=== PATIENT | female | born 1985 | race Caucasian/White ===

== ENCOUNTER 2016-09-03 10:59 | Inpatient (IN) | payer MEDICAID ==
[~2016-09-03] VITALS: Ht 167.6 cm; Wt 80.9 kg
[~2016-09-03 10:59] MED LIST: CALC-649 PO; FOLI0.4T2 PO; PREN1TAB49 PO
[2016-09-03 11:09] VITALS: BP 131/70; PULSE 91; RESP 16; Ht 167.6 cm; Wt 80.9 kg
[2016-09-03] MEDS ORDERED: NITR-58 PO (11:17)
[2016-09-03] MEDS ORDERED: LACTATED RINGER'S 1,000 ML IV SCH (11:29)
[2016-09-03] MEDS ORDERED: OXYTOCIN 30 UNITS/LR 500 ML IV PRN ×2 (11:30→16:00)
[2016-09-03] MEDS ORDERED: BUTORPHANOL 2 MG INJ IV PRN (11:30)
[2016-09-03] MEDS ORDERED: CARBOPROST 250 MCG INJ IM PRN ×2 (11:30→16:00)
[2016-09-03] MEDS ORDERED: MISOPROSTOL 200 MCG TAB PR PRN ×2 (11:30→16:00)
[2016-09-03] MEDS ORDERED: AMPICILLIN 2 GM/NS (PMX) 100 ML IV ONE (11:30)
[2016-09-03] MEDS ORDERED: LIDOCAINE 1% (MPF) 30 ML INJ INJ PRN (11:30)
[2016-09-03] MEDS ORDERED: ACETAMINOPHEN/CODEINE #3 TAB PO PRN ×3 (11:30→17:00)
[2016-09-03] MEDS ORDERED: METHYLERGONOVINE 0.2 MG INJ IM PRN ×2 (11:30→16:00)
[2016-09-03] MEDS ORDERED: IBUPROFEN 600 MG TAB PO PRN (11:30)
[2016-09-03] MEDS ORDERED: OXYTOCIN 30 UNITS/LR 500 ML IV SCH ×2 (11:30)
--- NOTE | 2016-09-03 11:46 | TRIAGE ---
OB Triage Datetime Report Generated by CPN: 09/03/2016 11:46 Datetime: 09/03/2016 11:40 Labor Evaluation Frequency: 2-8 Monitor Mode: External Duration (sec)2399: 60-120 Quality: Mild Pattern: Normal: <= 5 Contractions in 10 Minutes Resting Tone [place]: Relaxed Heart Rate FHR Baseline Rate: 135 Monitor Mode: External US Variability: Moderate 6-25 bpm Accelerations: 15X15 Decelerations: Variable Category: Category II Datetime: 09/03/2016 11:19 Vaginal Exam Dilatation (cms): 3.0 Effacement (%): 80 Station: -2 Exam By: wliu Datetime: 09/03/2016 11:17 Assessment Type: Triage Maternal Assessment Level of Consciousness: Fully Conscious DTR's/Clonus: DTRs 2+ Headache: Denies Blurred Vision: No Respiratory Effort: Unlabored; Regular Rhythm; Equal Expansion Breath Sounds, Left: Clear and Equal Breath Sounds, Right: Clear and Equal Nausea/Vomiting: Denies RUQ Epigastric Pain: Denies Lower Extremities Edema: None Degree: None Upper Extremities Edema: None Degree: None Facial Edema: None Fall Risk Assessment History of Falling: (0) No Secondary Diagnosis: (0) No Ambulatory Aid: (0) Bedrest/Nurse Assist IV Therapy: (0) No Gait: (0) Normal/Bedrest/Immobile Mental Status: (0) Oriented to Own Ability Fall Score: 0 Fall Risk Score Definition: No Risk: No action required Datetime: 09/03/2016 11:08 Time of Arrival: 09/03/2016 11:30 EGA: 38.4 Arrived By: Ambulatory Arrived From: Home Datetime: 09/03/2016 11:07 EGA: 38.5 Datetime: 09/03/2016 11:06 Time of Arrival: 09/03/2016 11:01 Arrived By: Ambulatory Arrived From: Home Chief Complaint: pt. came to hospital c/o uc since last night, deny srom, deny vag. bleeding Movement: Present Contractions: Irregular Rupture of Membranes: Denies Vaginal Bleeding: None Vaginal Discharge: Denies Recent Sexual Intercouse: Denies Abdominal Trauma: Not Applicable Patient Complaints: Contractions Time Provider Notified: 08/28/2016 11:22 Provider Notified: dr. zhao Initial Plan: r/o labor
[2016-09-03 12:23] LABS: ADD SCAN DIFF NO
[2016-09-03 12:27] LABS: BASOPHILS % 0.3 % (0.0-2.0); EOSINOPHILS % 0.4 % (0.0-7.0); HEMATOCRIT 36.5 % (37.0-47.0); HEMOGLOBIN 11.9 g/dl (12.0-16.0); MEAN CORPUSCULAR HEMOGLOBIN 28.9 pg (29.0-33.0); MEAN CORPUSCULAR HGB CONC 32.6 g/dl (32.0-37.0); MEAN CORPUSCULAR VOLUME 88.6 fl (82.0-101.0); MEAN PLATELET VOLUME 10.3 fl (7.4-10.4); MONOCYTE # 0.6 10^3/ul (0.3-0.9); MONOCYTES % 6.3 % (0.0-11.0); NEUTROPHIL # 7.2 10^3/ul (1.6-7.5); NEUTROPHILS % 72.5 % (39.0-77.0); PLATELET COUNT 196 10^3/UL (140-415); RED BLOOD COUNT 4.12 10^6/ul (4.20-5.40); WHITE BLOOD COUNT 9.9 10^3/ul (4.8-10.8)
[2016-09-03 13:33] LABS: INR 1.04; PROTIME 13.6 Sec (12.2-14.2); PT RATIO 1.1
[2016-09-03 14:22] LABS: PARTIAL THROMBOPLASTIN TIME 38.6 Sec (25.0-35.0)
[2016-09-03] MEDS ORDERED: LACTATED RINGER'S 1,000 ML IV PRN (15:00)
[2016-09-03] MEDS ORDERED: FENTAnyl 50 MCG/ML VIAL ONE (15:26)
[2016-09-03] MEDS ORDERED: FENTAnyl 50 MCG/ML VIAL IV ONE (15:30)
[2016-09-03] MEDS ORDERED: LACTATED RINGER'S 1,000 ML IV* SCH (15:57)
--- NOTE | 2016-09-03 15:57 | LDN ---
Date/Time of Note Date/Time of Note DATE: 09/03/16 TIME: 15:55 Delivery Summary Pt pushed to of a liveborn male infant with Apgars of 9/9 and weight of 3345g. Compound presentation at delivery. Placenta Delivered: Spontaneously Meconium: none Perineum intact?: No Perineal laceration: 1 Perineal laceration repair: Repaired with 3-0 Chromic in the usual fashion Anesthesia type: Local Estimated blood loss: 250 Sponge & Needle done & correct: Yes All needle counts correct: Yes Any foreign bodies felt in the: No Problems: Delivery Information Sex Infant Sex: male Apgars 1 Minute: 9 5 Minute: 9 Suctioning Nose & mouth suctioned at macario: No Delee suction performed: No Umbilical Cord Umbilical cord with: 3 Vessels Cord presentations: nuchal cord Nuchal cord present X: 1 Cord Blood was obtained: Yes Mother & Baby Disposition Disposition Mom & Baby to Maternity; Good: Yes Baby to NICU: No DESIRAE KATE MD Sep 03, 2016 15:57
[2016-09-03] MEDS ORDERED: SENNA/DOCUSATE NA (8.6MG/50MG) TAB PO PRN (16:00)
[2016-09-03] MEDS ORDERED: DIPHENHYDRAMINE 50 MG INJ IV PRN (16:00)
[2016-09-03] MEDS ORDERED: ONDANSETRON 4 MG INJ IV PRN ×2 (16:00→17:00)
[2016-09-03] MEDS ORDERED: LANOLIN 7 GM TUBE TOP PRN ×2 (16:00→17:00)
[2016-09-03] MEDS ORDERED: DIBUCAINE 1% 30 GM OINT PR PRN ×2 (16:00→17:00)
[2016-09-03] MEDS ORDERED: AMPICILLIN 1 GM/NS (PMX) 50 ML IV SCH (16:00)
[2016-09-03] MEDS ORDERED: ACETAMINOPHEN 325 MG TAB PO PRN ×2 (16:00→17:00)
[2016-09-03] MEDS ORDERED: BENZOCAINE 20% 56 ML SPRAY TOP PRN ×2 (16:00→17:00)
[2016-09-03] MEDS ORDERED: WITCH HAZEL/GLYCERIN PAD PR PRN (17:00)
[2016-09-03] MEDS ORDERED: OXYCODONE/ASPIRIN (4.88/325) TAB PO PRN ×2 (17:00)
[2016-09-03 17:03] VITALS: BP 119/60; PULSE 75; RESP 20
--- NOTE | 2016-09-03 17:21 | HP ---
Date/Time of Note Date/Time of Note DATE: 09/03/16 TIME: 17:15 OB - History Hx of Present Free Text/Dictation 19 years old female 3 para with a EDC of September 13, 2016 admitted to [facility] in active labor contraction every 3-4 minute cervical dilatation 5-6 cm 100% effacement vertex at -1 station with a strong quality of contraction transferred to labor and delivery room. Chief Complaint: Labor pain Estimated Due Date: Sep 13, 2016 : 3 Para: 2 Care: Good Care Ultrasounds: Normal mid trimester US Obstetrical Complications: None Medical Complications: None Past Family/Social History * Past Medical, Surgical, Family and Obstetric Histories reviewed from chart. Rubella: immune RPR/VDRL: Negative GBS Status: Negative HBsAG: Negative OB Admission Exam Vital Signs Vital Signs Vital Signs Date Time Temp Pulse Resp B/P Pulse Ox O2 Delivery O2 Flow Rate FiO2 09/03/16 17:03 99.1 75 20 119/60 Room Air Physical Exam HEENT: WNL Heart: Rhythm Normal Lungs: Clear, Equal Abdomen: WNL Extremities: Normal Reflexes: Normal Cervical Dilatation: 7cm Effacement: 100% Station: Other (Last pelvic examination cervix completely dilated 100% effaced vertex at 0 station) Membranes: Ruptured Amniotic Fluid: Clear Heart Rate: 120's Accelerations: Accelerations Present Decelerations: No Decelerations Varibility: Marked Contractions on Admission: < 5 Minutes Apart Intensity: Firm Last 72 hours Lab Results CBC & BMP 09/03/16 11:40 MICHAEL LAMAR MD Sep 03, 2016 17:20
[2016-09-03] MEDS ORDERED: IBUPROFEN 600 MG TAB PO SCH (18:00)
[2016-09-03] MEDS: OXYTOCIN 30 UNITS/LR 500 ML IV SCH ×2 (18:40→19:44)
[2016-09-03] MEDS: IBUPROFEN 600 MG TAB PO SCH ×2 (18:40→23:45)
[2016-09-03 20:00] VITALS: BP 117/64; PULSE 75; RESP 18
[2016-09-03] MEDS: SENNA/DOCUSATE NA (8.6MG/50MG) TAB PO SCH (21:39)
[2016-09-04] VITALS: BP 115/59; PULSE 70; RESP 18
[2016-09-04 04:15] VITALS: BP 119/64; PULSE 67; RESP 18
[2016-09-04] MEDS: IBUPROFEN 600 MG TAB PO SCH ×4 (05:13→23:25)
[2016-09-04 07:54] LABS: ADD SCAN DIFF NO
[2016-09-04 07:58] LABS: BASOPHILS % 0.3 % (0.0-2.0); EOSINOPHILS # 0.1 10^3/ul (0.0-0.5); EOSINOPHILS % 0.4 % (0.0-7.0); HEMATOCRIT 35.7 % (37.0-47.0); HEMOGLOBIN 11.5 g/dl (12.0-16.0); LYMPHOCYTES # 2.2 10^3/ul (0.8-2.9); MEAN CORPUSCULAR HEMOGLOBIN 28.4 pg (29.0-33.0); MEAN CORPUSCULAR HGB CONC 32.2 g/dl (32.0-37.0); MEAN CORPUSCULAR VOLUME 88.1 fl (82.0-101.0); MEAN PLATELET VOLUME 10.2 fl (7.4-10.4); MONOCYTE # 0.8 10^3/ul (0.3-0.9); MONOCYTES % 6.8 % (0.0-11.0); NEUTROPHIL # 8.2 10^3/ul (1.6-7.5); NEUTROPHILS % 73.1 % (39.0-77.0); PLATELET COUNT 174 10^3/UL (140-415); RED BLOOD COUNT 4.05 10^6/ul (4.20-5.40); RED CELL DISTRIBUTION WIDTH 14.2 % (11.5-14.5); WHITE BLOOD COUNT 11.3 10^3/ul (4.8-10.8)
[2016-09-04 08:00] VITALS: BP 107/59; PULSE 69; RESP 20
[2016-09-04] MEDS ORDERED: INFLUENZA VIRUS VACCINE 0.5 ML (DISPENSING) IM* ONE (09:00)
[2016-09-04] MEDS: SENNA/DOCUSATE NA (8.6MG/50MG) TAB PO SCH ×2 (09:05→20:23)
--- NOTE | 2016-09-04 09:46 | PN ---
Date/Time of Note Date/Time of Note DATE: 09/04/16 TIME: 09:45 OB Subjective Subjective Subjective day 1 VS stable afebrile abdomen soft uterus firm lochia normal extremity normal ambulation recommended MICHAEL LAMAR MD Sep 04, 2016 09:46
[2016-09-04 16:43] VITALS: BP 126/71; PULSE 80; RESP 20
[2016-09-04 19:30] VITALS: BP 118/61; PULSE 77; RESP 19
[2016-09-05 04:00] VITALS: BP 114/63; PULSE 75; RESP 20
[2016-09-05] MEDS: IBUPROFEN 600 MG TAB PO SCH ×2 (06:15→12:01)
[2016-09-05 07:41] VITALS: BP 110/60; PULSE 71; RESP 18
[2016-09-05] MEDS: SENNA/DOCUSATE NA (8.6MG/50MG) TAB PO SCH (08:58)
[2016-09-05] MEDS ORDERED: MEASLES,MUMPS,RUBELLA VACCINE INJ SC* ONE (09:00)
[2016-09-05] MEDS ORDERED: DIPHTH/TET/ACEL PERTUSS (ADULT) 0.5 ML VIAL IM* ONE ×2 (09:00→16:00)
--- NOTE | 2016-09-05 09:50 | PD.PPDC ---
BUILDING CONSTRUCTION ESTIMATOR Discharge Instruction Condition Patient Condition: Good Diet Diet: Resume Regular Diet Activity/Restrictions Activity: Normal Activity May Shower Restrictions: No Exercising No Lifting No Driving No Sexual Activity Nothing in the Vagina No [place] No Tampons, douche Follow-up Follow-up with Physician: 2, Week/Weeks Provider Information: Appointment to clinic in 2 weeks Return to clinic for LICENSED EMBALMER Instructions: Fever greater than 101 Chills Worsening abdominal pain Excessive Vaginal Bleeding More than 2 pads per hour Unable to tolerate diet OB Instructions: Breast Tenderness Depression Blurried Vision Headache MICHAEL LAMAR MD Sep 05, 2016 09:50
--- NOTE | 2016-09-05 09:52 | DS ---
Date/Time of Note Date/Time of Note DATE: 09/05/16 TIME: 09:51 Obstetrical Discharge Record Final Diagnosis Final Diagnosis: Term delivered Vaginal Delivery Obstetrical Delivery: Spontaneous Condition on Discharge Physical Assessment Last Vitals: Post normal vaginal delivery day 2 Vital sign stable afebrile abdomen soft uterus firm lochia normal extremity normal patient discharged home to follow-up instructions to be seen at the clinic 2 weeks Current Medications Medications (Trade) Dose Ordered Sig/Chu Route PRN Reason Start Time Stop Time Status Last Admin Dose Admin Lactated Ringer's 1,000 ml @ 125 mls/hr Q8H IV 09/03/16 11:29 09/03/16 15:59 DC 09/03/16 12:07 Ampicillin 100 ml @ 100 mls/hr ONCE ONCE IV 09/03/16 11:30 09/03/16 12:29 DC 09/03/16 12:38 Ampicillin (Ampicillin 1 Gm/ NS (Pmx)) 50 ml @ 100 mls/hr Q4 IV 09/03/16 16:00 09/03/16 16:00 DC Butorphanol Tartrate (Stadol) 2 mg Q2H PRN IV PAIN 09/03/16 11:30 09/03/16 16:00 DC 09/03/16 12:36 Lidocaine 30 ml 30 ml ONCE PRN INJ EPISIOTOMY/TEARING 09/03/16 11:30 09/03/16 16:00 DC Oxytocin/Lactated Ringer's 500 ml @ 125 mls/hr ONCE -MAY REPEAT X1 IV 09/03/16 11:30 09/03/16 16:00 DC 09/03/16 15:37 Oxytocin/Lactated Ringer's 500 ml @ 125 mls/hr ONCE IV 09/03/16 11:30 09/03/16 16:00 DC Ibuprofen (Motrin) 600 mg ONCE PRN PO Mild Pain (Pain Score 1-3) 09/03/16 11:30 09/03/16 16:00 DC Acetaminophen/ Codeine Phosphate 2 tab 2 tab ONCE PRN PO Moderate to Severe Pain (4-10) 09/03/16 11:30 09/03/16 16:00 DC Lactated Ringer's 1,000 ml @ 2,000 mls/hr Q30M PRN IV PRE-EPIDURAL BOLUS 09/03/16 15:00 09/03/16 16:00 DC Oxytocin/Lactated Ringer's 500 ml @ 0 mls/hr ONCE PRN IV For Hemorrhage Management 09/03/16 11:30 09/03/16 16:00 DC 09/03/16 12:50 Methylergonovine Maleate (Methergine) 0.2 mg ONCE PRN IM VAGINAL BLEEDING 09/03/16 11:30 09/03/16 16:00 DC Carboprost Tromethamine (Hemabate) 250 mcg ONCE PRN IM VAGINAL BLEEDING 09/03/16 11:30 09/03/16 16:00 DC Misoprostol (Cytotec) 1,000 mcg ONCE PRN VT VAGINAL BLEEDING 09/03/16 11:30 09/03/16 16:00 DC Fentanyl (Sublimaze) 100 mcg STK-MED ONCE .ROUTE 09/03/16 15:26 09/03/16 15:27 DC Fentanyl 100 mcg 100 mcg ONCE ONCE IV 09/03/16 15:30 09/03/16 15:34 DC 09/03/16 15:36 Lactated Ringer's (Lr) 1,000 ml @ 125 mls/hr Q8H IV* 09/03/16 15:57 09/03/16 16:41 DC Ibuprofen (Motrin) 600 mg Q6 PO 09/03/16 18:00 09/03/16 18:00 DC Ondansetron HCl (Zofran Inj) 4 mg Q6H PRN IV NAUSEA AND/OR VOMITING 09/03/16 16:00 09/03/16 16:41 DC Diphenhydramine HCl (Benadryl) 25 mg Q6H PRN IV PRURITUS 09/03/16 16:00 09/03/16 16:41 DC Senna/Docusate Sodium (Senokot-S) 1 tab BID PRN PO CONSTIPATION 09/03/16 16:00 09/03/16 16:41 DC Benzocaine (Dermoplast [place]) 1 spray BEDSIDE MEDICATION PRN TOP HEMORRHOID/EPISIOTMY PAIN 09/03/16 16:00 09/03/16 16:41 DC Dibucaine (Nupercainal) 1 applic BEDSIDE MEDICATION PRN VT HEMORRHOID/EPISIOTMY PAIN 09/03/16 16:00 09/03/16 16:41 DC Lanolin (Apv-C-Erknyw) 1 applic BEDSIDE MEDICATION PRN TOP BEDSIDE FOR MAX TO NIPPLES 09/03/16 16:00 09/03/16 16:41 DC Diphtheria/ Tetanus/Acell Pertussis (Adacel) 0.5 ml ONCE ONCE IM* 09/05/16 09:00 09/05/16 09:00 DC Acetaminophen 650 mg 650 mg Q4H PRN PO ELEVATED TEMPERATURE 09/03/16 16:00 09/03/16 16:41 DC Oxytocin/Lactated Ringer's 500 ml @ 0 mls/hr ONCE PRN IV For Hemorrhage Management 09/03/16 16:00 09/03/16 16:41 DC Methylergonovine Maleate (Methergine) 0.2 mg ONCE PRN IM VAGINAL BLEEDING 09/03/16 16:00 09/03/16 16:41 DC Carboprost Tromethamine (Hemabate) 250 mcg ONCE PRN IM VAGINAL BLEEDING 09/03/16 16:00 09/03/16 16:41 DC Misoprostol 1000 mcg 1,000 mcg ONCE PRN VT VAGINAL BLEEDING 09/03/16 16:00 09/03/16 16:41 DC Oxytocin/Lactated Ringer's 500 ml @ 125 mls/hr Q4H IV 09/03/16 16:37 09/04/16 00:36 DC 09/03/16 19:44 Ibuprofen (Motrin) 600 mg Q6 PO 09/03/16 18:00 09/05/16 06:15 Acetaminophen (Tylenol Tab) 650 mg Q4H PRN PO PAIN LEVEL 1-5 09/03/16 17:00 09/04/16 09:05 Acetaminophen/ Codeine Phosphate (Tylenol No.3) 1 tab Q4H PRN PO PAIN LEVEL 1-5 09/03/16 17:00 Acetaminophen/ Codeine Phosphate (Tylenol No.3) 2 tab Q4H PRN PO PAIN LEVEL 6-10 09/03/16 17:00 Oxycodone/Aspirin (Percodan) 1 tab Q3H PRN PO PAIN LEVEL 1-5 09/03/16 17:00 Oxycodone/Aspirin (Percodan) 2 tab Q3H PRN PO PAIN LEVEL 6-10 09/03/16 17:00 Ondansetron HCl (Zofran Inj) 4 mg Q6H PRN IV NAUSEA AND/OR VOMITING 09/03/16 17:00 Senna/Docusate Sodium (Senokot-S) 1 tab BID PO 09/03/16 21:00 09/05/16 08:58 Witch Riddhi/ Glycerin (Tucks Pads) 1 pad BEDSIDE MEDICATION PRN VT HEMORRHOID/EPISIOTMY PAIN 09/03/16 17:00 09/03/16 23:45 Benzocaine (Dermoplast [place]) 1 spray BEDSIDE MEDICATION PRN TOP HEMORRHOID/EPISIOTMY PAIN 09/03/16 17:00 09/03/16 18:41 Dibucaine (Nupercainal) 1 applic BEDSIDE MEDICATION PRN VT HEMORRHOID/EPISIOTMY PAIN 09/03/16 17:00 Lanolin (Bwc-I-Csbdfb) 1 applic BEDSIDE MEDICATION PRN TOP BEDSIDE FOR MAX TO NIPPLES 09/03/16 17:00 09/03/16 23:46 Measles/Mumps/ Rubella Vaccine Live (Mmr Ii Vaccine) 0.5 ml ONCE ONCE SC* 09/05/16 09:00 09/05/16 09:01 DC Influenza Virus Vaccine (Fluzone) 0.5 ml ONCE ONCE IM* 09/04/16 09:00 09/04/16 09:01 DC 09/04/16 13:07 Voiding: Yes Bowel Movement: Yes Breast: Filling Calf Tenderness: No Patient Condition: Good MICHAEL LAMAR MD Sep 05, 2016 09:52
== END 2016-09-05 16:25 | disposition home or self-care (01) | DRG 775 ==
LOC: OBT 10:59 → L-D 11:00 → OBT 11:40 → L-D 11:48 → PP1 16:57
PROVIDERS: ADMIT Obstetrics & Gynecology; ATTEND Obstetrics & Gynecology
PROC: 10E0XZZ Delivery of Products of Conception, External Approach (ICD-10-PCS; principal; 2016-09-03)
PROC: 0HQ9XZZ Repair Perineum Skin, External Approach (ICD-10-PCS; 2016-09-03)
DX: O70.0 First degree perineal laceration during delivery (principal); O69.81X0 Labor and delivery complicated by cord around neck, without compression, not applicable or unspecified; Z3A.37 37 weeks gestation of pregnancy; Z37.0 Single live birth
CPT/HCPCS: 85025; 85610; 85730; 86592; 86900; 86901; 87340; 90686; 90715; A4310; G0463; J0290; J2590; J3010; J7120

== ENCOUNTER 2016-11-15 10:03 | Day surgery (SDC) | payer MEDICAID ==
[~2016-11-15] VITALS: Ht 165.1 cm; Wt 73.0 kg
[2016-11-15] VITALS (19 sets, daily range): BP systolic 114–143; BP diastolic 59–80; PULSE 66–87; RESP 11–27; Ht 165.1 cm; Wt 73.0 kg
[~2016-11-15 10:03] MED LIST changes: +LACTATED RINGER'S 1,000 ML IV SCH
[2016-11-15] MEDS ORDERED: BUPIVACAINE 0.25%/EPI (SDV) 30 ML INJ ONE (12:05)
[2016-11-15] MEDS ORDERED: GLYCOPYRROLATE 0.4 MG INJ ONE (12:40)
[2016-11-15] MEDS ORDERED: CEFAZOLIN 1 GM INJ ONE (12:40)
[2016-11-15] MEDS ORDERED: FENTAnyl 50 MCG/ML VIAL ONE (12:40)
[2016-11-15] MEDS ORDERED: ONDANSETRON 4 MG INJ ONE (12:40)
[2016-11-15] MEDS ORDERED: NEOSTIGMINE 3 MG/3 ML SYRINGE ONE (12:40)
[2016-11-15] MEDS ORDERED: PROPOFOL 20 ML ONE (12:40)
[2016-11-15] MEDS ORDERED: MIDAZOLAM 1 MG/ML 2 ML INJ ONE (12:40)
[2016-11-15] MEDS ORDERED: DEXAMETHASONE 4 MG/ML 1 ML INJ ONE (12:40)
[2016-11-15] MEDS ORDERED: ROCURONIUM 50 MG INJ ONE (12:40)
[2016-11-15] MEDS ORDERED: FAMOTIDINE 20 MG INJ ONE (13:19)
[2016-11-15] MEDS ORDERED: ONDANSETRON 4 MG INJ IV PRN (13:30)
[2016-11-15] MEDS ORDERED: EPHEDrine SULFATE 50 MG/5 ML SYG IV PRN (13:30)
[2016-11-15] MEDS ORDERED: FENTAnyl 50 MCG/ML VIAL IV PRN ×3 (13:30)
[2016-11-15] MEDS ORDERED: MIDAZOLAM 1 MG/ML 2 ML INJ IV PRN (13:30)
[2016-11-15] MEDS ORDERED: TRIMETHOBENZAMIDE 100 MG/ML VIAL IM PRN (13:30)
[2016-11-15] MEDS ORDERED: HYDROmorphONE (0.2 MG/ML) 10ML SYG IV PRN ×3 (13:30)
[2016-11-15] MEDS ORDERED: hydrALAzine 20 MG INJ IV PRN (13:30)
[2016-11-15] MEDS ORDERED: LABETALOL HCL 20MG INJ IV PRN (13:30)
[2016-11-15] MEDS ORDERED: DIPHENHYDRAMINE 50 MG INJ IV PRN (13:30)
[2016-11-15] MEDS ORDERED: MEPERIDINE 25 MG INJ IV PRN (13:30)
[2016-11-15] MEDS ORDERED: KETOROLAC 30 MG INJ ONE (13:32)
--- NOTE | 2016-11-15 13:46 | PDOCDIS ---
Discharge Instructions CONDITION Patient Condition: Good HOME CARE INSTRUCTIONS: Diet Instructions: Regular ACTIVITY: Activity Restrictions: Rest between Activity Avoid heavy lifting No Sexual Activity Do not Drive Avoid Heavy Housework Bathing Restrictions: Shower FOLLOW UP/APPOINTMENTS Appointments 1 week MICHAEL LAMAR MD November 15, 2016 13:46
--- NOTE | 2016-11-15 13:54 | DS ---
Date/Time of Note Date/Time of Note DATE: 11/15/16 TIME: 13:51 Discharge Summary Admission/Discharge Info Admit Date/Time November 15, 2016 at 10 AM Discharge Date/Time November 15, 2016 or November 16, 2016 at 8 AM Final Diagnosis Request for bilateral tubal ligation status post mini laparotomy bilateral tubal ligation Patient Condition: Good Procedures Minilaparotomy bilateral tubal ligation Hx of Present Illness Request for bilateral tubal ligation no further desire for Hospital Course Satisfactory uneventful Home Meds Discontinued Reported Medications Calcium Carbonate (Calcium) 1 Tab Tablet, 1 TAB PO DAILY 04/24/12 Folic Acid* (Folic Acid*) 0.4 Mg Tablet, 0.4 MG PO DAILY 04/24/12 Vits W-Ca,Fe,Fa(<1MG) () 1 Tab Tablet, 1 TAB PO DAILY 04/24/12 Follow-up Plan Appointment office in 1 week Primary Care Provider Not On Staff Doctor MICHAEL LAMAR MD November 15, 2016 13:54
--- NOTE | 2016-11-15 13:56 | OPR ---
DATE OF OPERATION: 11/15/2016 PREOPERATIVE DIAGNOSES: Request for voluntary sterilization, bilateral tubal ligation. POSTOPERATIVE DIAGNOSIS: Request for voluntary sterilization, bilateral tubal ligation. PROCEDURE: Minilaparotomy, bilateral tubal ligation. DETAILS OF THE PROCEDURE: Under satisfactory general anesthesia, the patient was prepped and draped and placed in supine position. Pfannenstiel incision approximately 2 inches was made. Incision ca rried through the subcutaneous tissue. Bleeders brought under control with electrocautery. Fascia incised to the length of the incision. Rectus muscle divided in midline. Peritoneum exposed, enter ed through a transverse incision. Exploration of abdomen revealed normal size uterus, normal appear ing both tubes and ovaries. Right fallopian tube was retrieved. The ampullary section of the tube grasped by a [place] as well as the fimbria. Suture material used was #0 plain catgut which was sandy nforced with the same suture material. A portion of the tube was excised, the cut end of the tube c auterized, and the specimen submitted to pathology. The same procedure performed for the opposite s tommie. Peritoneal cavity irrigated with warm saline. Sponge, needle, and instrument reported to be c orrect. Peritoneum closed with a pursestring 2-0 chromic catgut. Rectus muscle approximated with 2 interrupted 2-0 chromic catgut. Fascia closed with 0 PDS in a continuous fashion. Subcutaneous ti ssue approximated with 2 interrupted 2-0 chromic catgut. Skin closed with 3-0 Monocryl in subcuticu lar fashion. The patient tolerated procedure well. Estimated blood loss less than 5 mL. Urine bag contained 200 mL of clear urine. The patient tolerated procedure well, transferred to [facility] in good condition. Dictated By: MICHAEL VACA/GILBERT Conf#: [id number] DID#: [id number]
[2016-11-15] MEDS ORDERED: BUTORPHANOL 2 MG INJ IV PRN (14:30)
== END 2016-11-15 16:45 | disposition home or self-care (01) ==
LOC: SDS 10:03
PROVIDERS: ATTEND Obstetrics & Gynecology
DX: Z30.2 Encounter for sterilization (principal)
CPT/HCPCS: 58600; 88302; J0690; J1100; J1885; J2175; J2250; J2405; J3010; Z7512; Z7610; J2710